=== PATIENT | female | born 1995 | race Caucasian/White ===

== ENCOUNTER 2024-02-17 13:13 | Emergency (ER) | payer OTHER, SELFPAY ==
[2024-02-17 13:17] VITALS: BP 113/76; PULSE 70; RESP 18; TEMP 36.4; O2SAT 100; BMI 20.9
--- NOTE | 2024-02-17 14:17 | PC.NURSE ---
patient declined IV placement and wanted to have a blood draw.
[2024-02-17 14:46] LABS: Add Manual Diff / Slide Review NO; Basophils Absolute Auto 0 /uL (0-100); Basophils Percent Auto 0.5 % (0-2); Eosinophils Absolute Auto 100 /uL (0-450); Eosinophils Percent Auto 1.4 % (2-4); Hematocrit 42.4 % (36-46); Hemoglobin 15.1 g/dL (12.0-16.0); Lymphocytes Absolute Auto 2900 /uL (1100-4500); Lymphocytes Percent Auto 42.2 % (25-40); Mean Corpuscular HGB Conc 35.6 % (30-36); Mean Corpuscular Hemoglobin 32.4 PG (26-34); Monocytes Absolute Auto 400 /uL (0-900); Monocytes Percent Auto 5.6 % (3-14); Neutrophils Absolute Auto 3500 /uL (1500-7000); Neutrophils Percent Auto 50.3 % (50-75); Platelet Count 326 X10^3/uL (150-400); Red Blood Cell Count 4.66 X10^6/uL (4.0-5.2); Red Cell Distribution Width 13.7 % (11.6-14.8); White Blood Cell Count 6.9 X10^3/uL (4.5-11.0)
--- NOTE | 2024-02-17 14:56 | ED_ITS ---
HPI - Abdominal Pain <Elvira Dash PA-C - Last Filed: 02/17/24 15:58> General Chief Complaint: Abdominal Pain Stated Complaint: abd and back pain sent from [facility] Time Seen by Provider: 02/17/24 14:54 Source: patient Mode of arrival: Ambulatory History of Present Illness HPI narrative: Patient is a pleasant 28-year-old female that presents to the emergency room today with abdominal pain and back pain wrapping around both sides for 8 days. Patient presented to the emergency room department today for increasing central abdominal pain spreading from her lower abdomen. The pain has not improved and steadily increasing. The patient describes it as a cramping pain, constant, 4/10. Initially the pain was in her back and wrapped around into the lower abdominal area. It has stayed there, but now has slowly moved up into the umbilical area. Patient has had some nausea, no vomiting, no diarrhea or constipation. The patient states that it felt kind of like her menstrual cramps when she had cramps. The patient has had complex abdominal surgery she has had a hysterectomy, and a rectal reconstruction and bladder lift and mesh. She currently does still have her ovaries. Patient denies recent injury, trauma or fall. She has had no fever. No chest pain or shortness of breath. No urinary frequency urgency or painful urination. She states it is impacting her activities of daily living and she has not able to really take care for children as she should. She presented to the emergency room department because she is tried [id number] ibuprofen with minimal relief. Though she is only tried the medication once. She has been using a heating pad on the abdomen that has helped a small amount. She tried some Pepto-Bismol with limited relief, she is also tried Gas-X with limited relief. She has no other further complaints currently at this time. Patient was auto after something for pain currently she is refused. Patient was also offered an IV, however she refused it initially and said if she needed the IV she would get a later date. She is chosen to just wait until her lab work comes back and then have another discussion about the possibility of knee and IV. Related Data Allergies Allergy/AdvReac Type Severity Reaction Status Date / Time Penicillins Allergy Severe Hives Verified 02/17/24 13:17 Review of Systems <Elvira Dash PA-C - Last Filed: 02/17/24 15:58> Review of Systems Narrative: Negative except as above Gastrointestinal Comments: Eight days of abdominal pain Musculoskeletal Comments: Eight days of lower abdominal and lower lumbar back pain Patient History <Elvira Dash PA-C - Last Filed: 02/17/24 15:58> Social History Smoking Status: Never smoker Smoking Status: Never smoker alcohol intake frequency: holidays/special occasions only Substance Use Type: marijuana Exam <Elvira Dash PA-C - Last Filed: 02/17/24 15:58> Initial Vital Signs Initial Vital Signs: Vital Signs Temperature 97.5 F L 02/17/24 13:17 Pulse Rate 70 02/17/24 13:17 Respiratory Rate 18 02/17/24 13:17 Blood Pressure 113/76 02/17/24 13:17 Pulse Oximetry 100 02/17/24 13:17 Oxygen Delivery Method Room Air 02/17/24 13:17 Reviewed <Cinthia Arshad DO - Last Filed: 02/27/24 07:01> Initial Vital Signs Initial Vital Signs: Vital Signs Temperature 97.5 F L 02/17/24 13:17 Pulse Rate 70 02/17/24 13:17 Respiratory Rate 18 02/17/24 13:17 Blood Pressure 113/76 02/17/24 13:17 Pulse Oximetry 100 02/17/24 13:17 Oxygen Delivery Method Room Air 02/17/24 13:17 Course <Elvira Dash PA-C - Last Filed: 02/17/24 15:58> Orders Ordered: Discontinued Medications Ondansetron HCl (Ondansetron 4 Mg/2 Ml Inj) 4 mg IV NOW PRN PRN Reason: Nausea And Vomiting Ondansetron HCl (Ondansetron 4 Mg Odt) 4 mg PO NOW PRN PRN Reason: Nausea And Vomiting Reevaluation(s) Reevaluation #1: Patient currently sitting on a chair, she has been given to warm blankets. She wrapped 1 warm blanket put on her abdomen. Patient's vital signs are completely stable. She has not appear to be in any acute distress. She states her pain is a 4/10 currently at this time. Patient was seen and evaluated around 3:00 p.m.. Currently waiting for her CMP to be registered. Vital Signs Vital signs: Vital Signs - 8 hr 02/17/24 13:17 Temperature 97.5 F L Pulse Rate 70 Respiratory Rate 18 Blood Pressure 113/76 Pulse Oximetry 100 Oxygen Delivery Method Room Air Reviewed <Cinthia Arshad DO - Last Filed: 02/27/24 07:01> Orders Ordered: Discontinued Medications Ondansetron HCl (Ondansetron 4 Mg/2 Ml Inj) 4 mg IV NOW PRN PRN Reason: Nausea And Vomiting Ondansetron HCl (Ondansetron 4 Mg Odt) 4 mg PO NOW PRN PRN Reason: Nausea And Vomiting Vital Signs Vital signs: Vital Signs - 8 hr 02/17/24 13:17 Temperature 97.5 F L Pulse Rate 70 Respiratory Rate 18 Blood Pressure 113/76 Pulse Oximetry 100 Oxygen Delivery Method Room Air MDM - Abdominal Pain <Elvira Dash PA-C - Last Filed: 02/17/24 15:58> Lab Data 02/17/24 14:32 02/17/24 14:32 Labs: Lab Results 02/17/24 Range/Units 14:32 WBC 6.9 (4.5-11.0) X10^3/uL RBC 4.66 (4.0-5.2) X10^6/uL Hgb 15.1 (12.0-16.0) g/dL Hct 42.4 (36-46) % MCV 91.0 (80-100) fL MCH 32.4 (26-34) PG MCHC 35.6 (30-36) % RDW 13.7 (11.6-14.8) % Plt Count 326 (150-400) X10^3/uL Neut % (Auto) 50.3 (50-75) % Lymph % (Auto) 42.2 H (25-40) % [place] % (Auto) 5.6 (3-14) % Eos % (Auto) 1.4 L (2-4) % Baso % (Auto) 0.5 (0-2) % Neut # (Auto) 3500 (9081-3308) /uL Lymph # (Auto) 2900 (0690-5321) /uL Mingo # (Auto) 400 (0-900) /uL Eos # (Auto) 100 (0-450) /uL Baso # (Auto) 0 (0-100) /uL Sodium 136 L (137-145) mmol/L Potassium 4.0 (3.4-5.1) mmol/L Chloride 106 (98-107) mmol/L Carbon Dioxide 22 (22-32) mmol/L BUN 5 L (7-17) mg/dL Creatinine 0.64 (0.52-1.04) mg/dL Estimated GFR > 60 (>60) mL/min BUN/Creatinine Ratio 7.8 (6-22) Glucose 87 (70-100) mg/dL Calcium 9.0 (8.4-10.2) mg/dL Total Bilirubin 0.7 (0.2-1.3) mg/dL AST 26 (14-36) IU/L ALT 12 (<35) IU/L Alkaline Phosphatase 46 (38-126) U/L Total Protein 7.8 (6.3-8.2) g/dL Albumin 4.6 (3.5-5.0) g/dL Globulin 3.2 (1.7-4.1) g/dL Albumin/Globulin Ratio 1.4 (1.0-2.8) Lipase 80 (23-300) U/L Point of care testing: Point of Care Testing Test Results Negative Urine Dip Bedside Urine Glucose Negative Bedside Urine Bilirubin - Negative Bedside Urine Ketone - Negative Urine Specific [place] 1.010 Bedside Urine Occult Blood - Negative Bedside Urine pH 7.0 Bedside Urine Protein - Negative Bedside Urine Urobilinogen - Negative Bedside Urine Nitrite - Negative Bedside Urine Leukocytes - Negative Esterase MDM Narrative Medical decision making narrative: 28-year-old female presents to the emergency room department after being seen in the walk-in clinic with 8 days of lower lumbar pain wrapping around into the lower abdominal area, feels like period pain, cramping however the patient has had partial hysterectomy. Patient was worried because the pain is now moving up into the umbilical area. No history small-bowel obstruction, diverticulitis, diverticulosis, ovarian cysts. She still has her gallbladder as well as her appendix. No fever. Her exam is negative for any acute substantial findings. No rigidity or guarding on exam. She is some mild tenderness in the lower abdominal area. And some mild lower lumbar pain. No CVA tenderness with the exam. Urine was collected, negative for any substantial acute findings. CBC was collected negative for elevated white count, anemia, platelets are normal [facility] normal Lipase normal Patient was offered something for pain she refused Patient has initially refused an IV, we will discuss possible IV placement for CT abdomen and pelvis after her CMP comes back. The patient has decided that she is going to go home and not have a CT scan. She will return if anything changes. Differential diagnosis; pancreatitis, acute cholelithiasis, acute cholecystitis, acute appendicitis, small-bowel obstruction, diverticulitis, diverticulosis, ovarian pathology. Colitis, <Cinthia Arshad, - Last Filed: 02/27/24 07:01> Lab Data Labs: Lab Results 02/17/24 Range/Units 14:32 WBC 6.9 (4.5-11.0) X10^3/uL RBC 4.66 (4.0-5.2) X10^6/uL Hgb 15.1 (12.0-16.0) g/dL Hct 42.4 (36-46) % MCV 91.0 (80-100) fL MCH 32.4 (26-34) PG MCHC 35.6 (30-36) % RDW 13.7 (11.6-14.8) % Plt Count 326 (150-400) X10^3/uL Neut % (Auto) 50.3 (50-75) % Lymph % (Auto) 42.2 H (25-40) % Mingo % (Auto) 5.6 (3-14) % Eos % (Auto) 1.4 L (2-4) % Baso % (Auto) 0.5 (0-2) % Neut # (Auto) 3500 (3492-3788) /uL Lymph # (Auto) 2900 (3167-9924) /uL Mingo # (Auto) 400 (0-900) /uL Eos # (Auto) 100 (0-450) /uL Baso # (Auto) 0 (0-100) /uL Sodium 136 L (137-145) mmol/L Potassium 4.0 (3.4-5.1) mmol/L Chloride 106 (98-107) mmol/L Carbon Dioxide 22 (22-32) mmol/L BUN 5 L (7-17) mg/dL Creatinine 0.64 (0.52-1.04) mg/dL Estimated GFR > 60 (>60) mL/min BUN/Creatinine Ratio 7.8 (6-22) Glucose 87 (70-100) mg/dL Calcium 9.0 (8.4-10.2) mg/dL Total Bilirubin 0.7 (0.2-1.3) mg/dL AST 26 (14-36) IU/L ALT 12 (<35) IU/L Alkaline Phosphatase 46 (38-126) U/L Total Protein 7.8 (6.3-8.2) g/dL Albumin 4.6 (3.5-5.0) g/dL Globulin 3.2 (1.7-4.1) g/dL Albumin/Globulin Ratio 1.4 (1.0-2.8) Lipase 80 (23-300) U/L Point of care testing: Point of Care Testing Test Results Negative Urine Dip Bedside Urine Glucose Negative Bedside Urine Bilirubin - Negative Bedside Urine Ketone - Negative Urine Specific [place] 1.010 Bedside Urine Occult Blood - Negative Bedside Urine pH 7.0 Bedside Urine Protein - Negative Bedside Urine Urobilinogen - Negative Bedside Urine Nitrite - Negative Bedside Urine Leukocytes - Negative Esterase Discharge Plan Departure Patient Disposition: Home Clinical Impression: Abdominal pain Qualifiers: Abdominal location: lower abdomen, unspecified Qualified Code(s): R10.30 - Lower abdominal pain, unspecified Activity Restrictions/Additional Instructions: return as needed. [id number] ibuprofen and Tylenol for discomfort and pain and do that back and forth every 4 hours. Warm compresses to the abdomen. Consider topical preparations such as Biofreeze, Salonpas, capsaicin, diclofenac or Voltaren, consider cannabis preparations. The cannabis preparations do not cause any type of hallucinogenic properties, they do not cross the bloodstream, they do not cause you to be high or under the influence. They do not present on a drug screen. Return to the emergency department if things do not improve or they get worse . Consider a bland diet. Drink plenty of fluids. Please make an appointment to follow up with your primary care doctor. Referrals: Miscellaneous,Doctor, MD [Primary Care Provider] - Stand Alone Forms: Patient Portal/API ED Sign-out <Cinthia Arshad DO - Last Filed: 02/27/24 07:01> Cosign ED Attending Ellie Attestation: I was immediately available in the department for consultation.
[2024-02-17 14:59] LABS: Alanine Aminotransferase 12 IU/L (<35); Albumin 4.6 g/dL (3.5-5.0); Albumin Globulin Ratio 1.4 (1.0-2.8); Alkaline Phosphatase 46 U/L (38-126); Aspartate Aminotransferase 26 IU/L (14-36); BUN Creatinine Ratio 7.8 (6-22); Bilirubin Total 0.7 mg/dL (0.2-1.3); Blood Urea Nitrogen 5 mg/dL (7-17); Carbon Dioxide 22 mmol/L (22-32); Chloride 106 mmol/L (98-107); Estimated Glomerular Filt Rate > 60 mL/min (>60); Globulin 3.2 g/dL (1.7-4.1); Glucose 87 mg/dL (70-100); HEMOLYSIS < 15 (0-50); Lipase 80 U/L (23-300); Sodium 136 mmol/L (137-145); Total Protein 7.8 g/dL (6.3-8.2)
[2024-02-17 16:21] VITALS: BP 110/67; PULSE 61; RESP 16; O2SAT 97
== END 2024-02-17 16:21 | disposition home or self-care (01) ==
PROVIDERS: Emergency Medicine; Emergency Provider Physician Assistant
DX: R10.9 Unspecified abdominal pain (principal); M54.50 Low back pain, unspecified
CPT/HCPCS: 36415; 80053; 81003; 81025; 83690; 85025; 99282; 99283

== ENCOUNTER 2024-03-08 14:47 | Emergency (ER) | payer OTHER, SELFPAY ==
[2024-03-08 14:55] VITALS: BP 118/81; PULSE 84; RESP 18; TEMP 36.7; O2SAT 100; BMI 20.1
--- NOTE | 2024-03-08 16:02 | PC.NURSE ---
Pt sent by pcp for CT scan due to ovarian cysts. Pt seen her previously inthe ED and declined ct at that time.
--- NOTE | 2024-03-08 16:27 | DI.CT.S_ITS ---
PROCEDURE: CT ABDOMEN PELVIS W CON INDICATIONS: Pelvic pain, ovarian cysts, partial hysterectomy TECHNIQUE: After the administration of intravenous contrast, axial sections acquired from the lung bases to the pubic symphysis. Coronal and sagittal reformats were performed. For radiation dose reduction, the following was used: automated exposure control, adjustment of mA and/or kV according to patient size. COMPARISON: None. FINDINGS: Image quality: Diagnostic. Lower Chest: No significant findings. ABDOMEN: Liver: No solid mass. Gallbladder: No radiopaque gallstones or wall thickening. Biliary ducts: No biliary dilation. Pancreas: No ductal dilation. Spleen: Size is within normal limits. 7 mm inferior pole simple splenic cyst. Adrenal Glands: No adrenal nodules. Kidneys and Ureters: No hydronephrosis. No solid mass. No complex renal cystic lesion which requires follow up. Stomach and Bowel: Normal colonic caliber, without significant wall thickening. Appendix is normal. Peritoneum: No abnormal intraperitoneal fluid. No free air. Ventral Wall: No significant ventral hernia. Abdominal Nodes: No retroperitoneal or mesenteric adenopathy by size criteria. Vessels: Aorta and inferior vena cava are normal in size. PELVIS: Pelvic Organs: 1.9 cm focus of enhancement within the right ovary. Uterus is not visualized. Bladder: No bladder wall thickening, accounting for underdistention. Pelvic Nodes: No enlarged lymph nodes. Miscellaneous: No inguinal hernias are seen. Bones: No aggressive osseous abnormality. IMPRESSION: 1.9 cm focus of rim enhancement within the right ovary suggestive involuting hemorrhagic cyst. Dictated by: Leonor Bran M.D. on 03/08/2024 at 17:05 Approved by: Leonor Bran M.D. on 03/08/2024 at 17:06
--- NOTE | 2024-03-08 16:29 | ED.FEMALEGU ---
HPI - Female Genitourinary <Elvira Dash PA-C - Last Filed: 03/09/24 10:13> General Chief complaint: Urogenital-Female Stated complaint: abd pain, sent by pcp, has cysts Time Seen by Provider: 03/08/24 16:13 Source: patient Mode of arrival: Ambulatory History of Present Illness HPI Narrative: Pleasant 28-year-old female here for a CT scan. This patient was seen by me previously. Recently had an ultrasound, that showed ovarian cysts. Sent here by her primary care doctor for a CT scan to evaluate. Continues to have abdominal pain. No other further complaints. Lower abdominal pain. Bilateral back pain. No urinary symptoms. Mild nausea. Patient was seen here on 02/17/24, for abdominal pain, that point in time advised the patient best treatment option would be a CT scan to evaluate her for abdominal pain. The patient at that time decided that she did not want to have a CT scan, decided to continue to care for her abdominal pain at home. She also decided that point in time she did not want anything for pain. Patient followed up with her primary care doctor in the office, an ultrasound was ordered this past Wednesday. Her provider received results today which showed ovarian cysts and was concerning for hemorrhagic ovarian cysts. Her primary care doctor reached out to her and stated that he wanted to order a CT scan, however her insurance needed to authorize the CT scan so was suggested after discussing with the primary care doctor and discussing with her insurance that she be seen in the emergency room department. She presented to the emergency department today with now 3 weeks of continued lower abdominal pain, back pain. She has had nausea, no vomiting, continued abdominal pain. She is a supplementing and treating her pain with Tylenol, and a heating pad. This does help, she states that she is not jehovah's witness about taking the medication and using the heating pad. She does have discomfort and pain today here in the emergency department. Here requesting a CT scan. Patient has a history of endometriosis, she has had a partial hysterectomy, currently has her fallopian tubes and her ovaries on both sides. Has a family history of ovarian cancer, and endometriosis. Patient states she has had some mild constipation, no fevers, poor oral intake due to feeling kind of bloated and due to the abdominal pain. No urinary frequency urgency or painful urination. No other further complaints. Related Data Allergies Allergy/AdvReac Type Severity Reaction Status Date / Time Penicillins Allergy Severe Hives Verified 03/08/24 15:00 Review of Systems <Elvira Dash PA-C - Last Filed: 03/09/24 10:13> Review of Systems Narrative: Negative except as above Gastrointestinal Comments: Nausea, no vomiting, abdominal pain, Genitourinary Comments: No urinary symptoms. Musculoskeletal Comments: Lower back pain. Hematologic/Lymphatic Comments: Patient has had a partial hysterectomy no vaginal bleeding. Patient History <Elvira Dash PA-C - Last Filed: 03/09/24 10:13> alcohol intake frequency: holidays/special occasions only Substance Use Type: marijuana Exam <Elvira Dash PA-C - Last Filed: 03/09/24 10:13> Initial Vital Signs Initial Vital Signs: Vital Signs Temperature 98.1 F 03/08/24 14:55 Pulse Rate 84 03/08/24 14:55 Respiratory Rate 18 03/08/24 14:55 Blood Pressure 118/81 03/08/24 14:55 Pulse Oximetry 100 03/08/24 14:55 Oxygen Delivery Method Room Air 03/08/24 14:55 Const General: cooperative, healthy appearing, well developed, well groomed, in distress and other (Position of comfort is with her knees kind of up to leave the pain) Eyes General: Yes appearance normal, both eyes and all related structures Pupils: PERRL EOM: EOM intact bilaterally Resp Auscultation: clear to auscultation bilaterally, breath sounds absent, lung sounds not diminished, no rales, no rhonchi and no wheezes Cardio Rate: regular rate Rhythm: regular rhythm Heart Sounds: S1 normal and S2 normal GI Inspection: normal to inspection Palpation: soft and tender (Lower abdominal area, no discomfort over the pubic area.) Back/Spine/Pelvis Other: Patient has some bilateral lower back discomfort and pain, no CVA tenderness, Skin Other: Warm pink and dry Neuro Other: Cranial nerves are grossly intact, cognition, speech, gait motor mentation is completely intact. Extrem Other: Range of motion, strength, pulses, cap refill preserved in the upper and lower extremities Psych Other: Patient's appearance, mental status, speech, mood, affect, attitude, thought process, thought content and judgment all completely intact. <Christophe Cramer MD - Last Filed: 03/09/24 18:52> Initial Vital Signs Initial Vital Signs: Vital Signs Temperature 98.1 F 03/08/24 14:55 Pulse Rate 84 03/08/24 14:55 Respiratory Rate 18 03/08/24 14:55 Blood Pressure 118/81 03/08/24 14:55 Pulse Oximetry 100 03/08/24 14:55 Oxygen Delivery Method Room Air 03/08/24 14:55 Scores <Elvira Dash PA-C - Last Filed: 03/09/24 10:13> GCS Citation: 15 Course <Elvira Dash PA-C - Last Filed: 03/09/24 10:13> Orders Ordered: Discontinued Medications Hydromorphone HCl (Hydromorphone 1 Mg Inj) 0.5 mg IV NOW ONE Stop: 03/08/24 16:28 Last Admin: 03/08/24 17:52 Dose: Not Given Documented By: CLAUDINE Ondansetron HCl (Ondansetron 4 Mg/2 Ml Inj) 4 mg IV NOW ONE Stop: 03/08/24 16:28 Last Admin: 03/08/24 17:53 Dose: Not Given Documented By: CLAUDINE Reevaluation(s) Reevaluation #1: Patient was offered Zofran, patient was offered IV pain medication. The patient refused both. She had an ice pack on her abdomen the whole time she was here, I discussed with her pain medication, Zofran, prescriptions. She refused both of those. Plans to follow up with her primary care doctor. Vital Signs Vital signs: Vital Signs - 8 hr 03/08/24 14:55 03/08/24 17:53 Temperature 98.1 F 98.6 F Pulse Rate 84 80 Respiratory Rate 18 20 Blood Pressure 118/81 122/76 Pulse Oximetry 100 100 Oxygen Delivery Method Room Air Room Air Reviewed <Christophe Cramer MD - Last Filed: 03/09/24 18:52> Orders Ordered: Discontinued Medications Hydromorphone HCl (Hydromorphone 1 Mg Inj) 0.5 mg IV NOW ONE Stop: 03/08/24 16:28 Last Admin: 03/08/24 17:52 Dose: Not Given Documented By: MPO Ondansetron HCl (Ondansetron 4 Mg/2 Ml Inj) 4 mg IV NOW ONE Stop: 03/08/24 16:28 Last Admin: 03/08/24 17:53 Dose: Not Given Documented By: MPO Vital Signs Vital signs: Vital Signs - 8 hr 03/08/24 14:55 03/08/24 17:53 Temperature 98.1 F 98.6 F Pulse Rate 84 80 Respiratory Rate 18 20 Blood Pressure 118/81 122/76 Pulse Oximetry 100 100 Oxygen Delivery Method Room Air Room Air MDM - Female Genitourinary <Elvira Dash PA-C - Last Filed: 03/09/24 10:13> Lab Data 03/08/24 16:46 03/08/24 16:46 Labs: Lab Results 03/08/24 Range/Units 16:46 WBC 8.3 (4.5-11.0) X10^3/uL RBC 4.81 (4.0-5.2) X10^6/uL Hgb 15.6 (12.0-16.0) g/dL Hct 44.2 (36-46) % MCV 91.8 (80-100) fL MCH 32.4 (26-34) PG MCHC 35.2 (30-36) % RDW 13.7 (11.6-14.8) % Plt Count 360 (150-400) X10^3/uL Neut % (Auto) 57.3 (50-75) % Lymph % (Auto) 36.5 (25-40) % [place] % (Auto) 5.0 (3-14) % Eos % (Auto) 0.6 L (2-4) % Baso % (Auto) 0.6 (0-2) % Neut # (Auto) 4700 (7500-4449) /uL Lymph # (Auto) 3000 (2050-4656) /uL [place] # (Auto) 400 (0-900) /uL Eos # (Auto) 100 (0-450) /uL Baso # (Auto) 100 (0-100) /uL Sodium 139 (137-145) mmol/L Potassium 3.7 (3.4-5.1) mmol/L Chloride 104 (98-107) mmol/L Carbon Dioxide 25 (22-32) mmol/L BUN 8 (7-17) mg/dL Creatinine 0.62 (0.52-1.04) mg/dL Estimated GFR > 60 (>60) mL/min BUN/Creatinine Ratio 12.9 (6-22) Glucose 83 (70-100) mg/dL Calcium 9.8 (8.4-10.2) mg/dL Point of Care Testing Test Results Negative Urine Dip Bedside Urine Glucose Negative Bedside Urine Bilirubin - Negative Bedside Urine Ketone - Negative Urine Specific [place] 1.015 Bedside Urine Occult Blood - Negative Bedside Urine pH 6.0 Bedside Urine Protein - Negative Bedside Urine Urobilinogen +/- 1mg Bedside Urine Nitrite - Negative Bedside Urine Leukocytes - Negative Esterase Imaging Data CT scan - abdomen/pelvis: Radiologist's Impression: [address] [address] [address] Scan Report Signed Patient: Sy Maher MR#: [id number] : 1995 Acct:[id number] Age/Sex: 28 / F Date of Service: 03/08/24 Loc: ED Accession Number: [id number] Procedure: CT abdomen pelvis w con Ordering Provider: Elvira Dash PA-C PROCEDURE: CT ABDOMEN PELVIS W CON INDICATIONS: Pelvic pain, ovarian cysts, partial hysterectomy TECHNIQUE: After the administration of intravenous contrast, axial sections acquired from the lung bases to the pubic symphysis. Coronal and sagittal reformats were performed. For radiation dose reduction, the following was used: automated exposure control, adjustment of mA and/or kV according to patient size. COMPARISON: None. FINDINGS: Image quality: Diagnostic. Lower Chest: No significant findings. ABDOMEN: Liver: No solid mass. Gallbladder: No radiopaque gallstones or wall thickening. Biliary ducts: No biliary dilation. Pancreas: No ductal dilation. Spleen: Size is within normal limits. 7 mm inferior pole simple splenic cyst. Adrenal Glands: No adrenal nodules. Kidneys and Ureters: No hydronephrosis. No solid mass. No complex renal cystic lesion which requires follow up. Stomach and Bowel: Normal colonic caliber, without significant wall thickening. Appendix is normal. Peritoneum: No abnormal intraperitoneal fluid. No free air. Ventral Wall: No significant ventral hernia. Abdominal Nodes: No retroperitoneal or mesenteric adenopathy by size criteria. Vessels: Aorta and inferior vena cava are normal in size. PELVIS: Pelvic Organs: 1.9 cm focus of enhancement within the right ovary. Uterus is not visualized. Bladder: No bladder wall thickening, accounting for underdistention. Pelvic Nodes: No enlarged lymph nodes. Miscellaneous: No inguinal hernias are seen. Bones: No aggressive osseous abnormality. IMPRESSION: 1.9 cm focus of rim enhancement within the right ovary suggestive involuting hemorrhagic cyst. Dictated by: Leonor Bran M.D. on 03/08/2024 at 17:05 Approved by: Leonor Bran M.D. on 03/08/2024 at 17:06 [facility] Narrative Medical decision making narrative: Patient is a very pleasant 28-year-old female presents to the emergency department for follow up. The patient was seen by myself on 02/17/2024. She came in for ongoing abdominal pain. Evaluated the patient that point in time I discussed with her evaluation by a CT scan to evaluate her abdominal pain. The patient refused a CT scan at that time. She also refused pain medication as an adjunct to Tylenol. She refused prescriptions. Decided to follow up with her primary care doctor. She was able to see her primary care doctor who ordered an outpatient ultrasound which was concerning for bilateral hemorrhagic cysts. Her primary care doctor suggested that she have a CT scan, however she was unable to get the CT scan ordered due to needing prior authorization by her insurance, it was suggested she presented to the emergency department to have a CT scan ordered in the emergency department for evaluation of her ongoing now greater than 3 weeks abdominal discomfort and pain associated with decreased oral intake and nausea. IV was started here in the emergency department, she was offered IV Zofran and IV Dilaudid which the patient refused. CT scan with IV contrast was done which shows a 1.9 cm involuting ovarian right-sided cyst. Does not appear to be any hemorrhagic or surrounding signs of blood, or any signs of infection. Labs were drawn as well at the time of IV start. Her H&H is stable, she does not have an elevated white count, her electrolytes are all within normal limits. I discussed the findings of her CT scan and lab work and urine with the patient I think all of these are reassuring that currently she does not have an infectious process going on, she has not need a blood transfusion, she was not have an infection, she does not have a urinary tract infection. Unfortunately unknown cause associated with her current ongoing chronic abdominal pain. The patient has had a prior previous partial hysterectomy, the pain that she is having could be associated with a diagnosis of endometriosis which she does have a family history of. However diagnosis of endometriosis would need to be made by a biopsy. It might be beneficial for primary care doctor referred her to forensic science technician for a biopsy to figure out if possibly she has endometriosis. If in fact she is diagnosed with endometriosis then a treatment plan can be made to deal with and help her deal with the pain that she is currently having. Again I offered the patient prescriptions of pain medication to use in conjunction with the oral Tylenol that she is using. The patient has again refused any type of prescriptions of pain medication as well as oral Zofran. She states that she will use gentle massage, heating pad, and Tylenol as needed for discomfort and pain and will make a plan to follow up with her primary care doctor. I did make a copy of her CT scan so that she can primary care doctor's office. I advised the patient that her primary care doctor should be able to use the scan on the PAC system and make plans for follow-up care and then referrals as needed. Patient's IV is discontinued, and the patient is discharged in stable condition with her . Differential diagnosis; ovarian pathology, endometriosis, chronic abdominal pain, <Christophe Cramer MD - Last Filed: 03/09/24 18:52> Lab Data Labs: Lab Results 03/08/24 Range/Units 16:46 WBC 8.3 (4.5-11.0) X10^3/uL RBC 4.81 (4.0-5.2) X10^6/uL Hgb 15.6 (12.0-16.0) g/dL Hct 44.2 (36-46) % MCV 91.8 (80-100) fL MCH 32.4 (26-34) PG MCHC 35.2 (30-36) % RDW 13.7 (11.6-14.8) % Plt Count 360 (150-400) X10^3/uL Neut % (Auto) 57.3 (50-75) % Lymph % (Auto) 36.5 (25-40) % [place] % (Auto) 5.0 (3-14) % Eos % (Auto) 0.6 L (2-4) % Baso % (Auto) 0.6 (0-2) % Neut # (Auto) 4700 (8001-7775) /uL Lymph # (Auto) 3000 (6963-5303) /uL [place] # (Auto) 400 (0-900) /uL Eos # (Auto) 100 (0-450) /uL Baso # (Auto) 100 (0-100) /uL Sodium 139 (137-145) mmol/L Potassium 3.7 (3.4-5.1) mmol/L Chloride 104 (98-107) mmol/L Carbon Dioxide 25 (22-32) mmol/L BUN 8 (7-17) mg/dL Creatinine 0.62 (0.52-1.04) mg/dL Estimated GFR > 60 (>60) mL/min BUN/Creatinine Ratio 12.9 (6-22) Glucose 83 (70-100) mg/dL Calcium 9.8 (8.4-10.2) mg/dL Point of Care Testing Test Results Negative Urine Dip Bedside Urine Glucose Negative Bedside Urine Bilirubin - Negative Bedside Urine Ketone - Negative Urine Specific [place] 1.015 Bedside Urine Occult Blood - Negative Bedside Urine pH 6.0 Bedside Urine Protein - Negative Bedside Urine Urobilinogen +/- 1mg Bedside Urine Nitrite - Negative Bedside Urine Leukocytes - Negative Esterase Discharge Plan Departure Patient Disposition: Home Clinical Impression: Ovarian cyst Qualifiers: Laterality: right Qualified Code(s): N83.201 - Unspecified ovarian cyst, right side Activity Restrictions/Additional Instructions: I made copies of your CT scans that you can take these to your primary care doctor 0.7 in on the right side. Continue with Tylenol, heat. Currently at this time you have decided against any prescriptions. Continue with the Tylenol, and heat. Please follow up with your primary care doctor. Return to the emergency department as needed. I hope you feel better. Referrals: Miscellaneous,[facility] [Primary Care Provider] - Stand Alone Forms: Patient Portal/API ED Sign-out <Christophe Cramer MD - Last Filed: 03/09/24 18:52> Cosign ED Attending Cosdavidature Attestation: I was immediately available in the department for consultation. This documentation has been reviewed and I agree with assessment and plan. Supervised by Christophe Cramer MD
[2024-03-08 16:54] LABS: Add Manual Diff / Slide Review NO; Basophils Absolute Auto 100 /uL (0-100); Basophils Percent Auto 0.6 % (0-2); Eosinophils Absolute Auto 100 /uL (0-450); Eosinophils Percent Auto 0.6 % (2-4); Hematocrit 44.2 % (36-46); Hemoglobin 15.6 g/dL (12.0-16.0); Lymphocytes Absolute Auto 3000 /uL (1100-4500); Lymphocytes Percent Auto 36.5 % (25-40); Mean Corpuscular HGB Conc 35.2 % (30-36); Mean Corpuscular Hemoglobin 32.4 PG (26-34); Mean Corpuscular Volume 91.8 fL (80-100); Monocytes Absolute Auto 400 /uL (0-900); Neutrophils Absolute Auto 4700 /uL (1500-7000); Neutrophils Percent Auto 57.3 % (50-75); Platelet Count 360 X10^3/uL (150-400); Red Blood Cell Count 4.81 X10^6/uL (4.0-5.2); Red Cell Distribution Width 13.7 % (11.6-14.8); White Blood Cell Count 8.3 X10^3/uL (4.5-11.0)
[2024-03-08 17:07] LABS: BUN Creatinine Ratio 12.9 (6-22); Blood Urea Nitrogen 8 mg/dL (7-17); Calcium 9.8 mg/dL (8.4-10.2); Carbon Dioxide 25 mmol/L (22-32); Chloride 104 mmol/L (98-107); Estimated Glomerular Filt Rate > 60 mL/min (>60); Glucose 83 mg/dL (70-100); HEMOLYSIS < 15 (0-50); Potassium 3.7 mmol/L (3.4-5.1); Sodium 139 mmol/L (137-145)
[2024-03-08 17:53] VITALS: BP 122/76; PULSE 80; RESP 20; TEMP 37; O2SAT 100
== END 2024-03-08 17:54 | disposition home or self-care (01) ==
PROVIDERS: Emergency Provider Physician Assistant
DX: N83.201 Unspecified ovarian cyst, right side (principal)
CPT/HCPCS: 36415; 74177; 80048; 81003; 81025; 85025; 99283; 99284; Q9967